=== PATIENT | male | born 1980 | race Caucasian/White ===

== ENCOUNTER 2019-03-10 04:21 | Inpatient (IN) | payer SELFPAY ==
[~2019-03-10] VITALS: Ht 193 cm; Wt 74.2 kg
--- NOTE | 2019-03-10 04:37 | PHYS DOC ---
Past History Past Medical History: Alcoholism, Seizure Additional Past Medical Histor: TBI (LATONYA HYDE DO) Alcohol Use: Occasionally Drug Use: None (LATONYA HYDE DO) Adult General Chief Complaint Chief Complaint: SEIZURE HPI HPI 38-year-old male presents via EMS for seizure. The patient was reported to woke up his significant other around 3:30 AM with tonic-clonic seizure. It is believed that this lasted in excess of 10 minutes until after EMS arrived and gave Versed. The patient was unable to provide a history to EMS or to myself. This history of present illness is gleaned from EMS reports. When EMS arrived the patient was having rhythmic jerking of his upper and lower extremities as well as twitching his head. He had no loss of bowel or bladder. After he was given Versed, the activity appeared to stop. The patient is now very sleepy and is not answering questions. His significant other stated that he is short episodes, but nothing as long as this. Patient may or may not be on any seizure medication. Possible history of traumatic brain injury in the past. (NEAL RODRIGUEZ DO) Review of Systems Review of Systems Unable to assess due to the patient not answering questions. (NEAL RODRIGUEZ DO) Current Medications Current Medications Current Medications Medications (Trade) Dose Ordered Sig/Andrea Start Time Stop Time Status Last Admin Dose Admin Sodium Chloride 1,000 ml @ 1,000 mls/hr 1X ONCE 03/10/19 04:30 03/10/19 05:29 UNV (NEAL RODRIGUEZ DO) Physical Exam Physical Exam Constitutional: Well developed, well nourished, non-toxic appearance. [] HENT: Normocephalic, atraumatic, bilateral external ears normal, oropharynx moist, no oral exudates, nose normal. [] Eyes: PERRLA, EOMI, conjunctiva normal, no discharge. [] Neck: Normal range of motion, no tenderness, supple, no stridor. [] Cardiovascular:Heart rate regular rhythm, no murmur [] Lungs & Thorax: Bilateral breath sounds clear to auscultation [] Abdomen: Bowel sounds normal, soft, no masses, no pulsatile masses. [] Skin: Warm, dry, no erythema, no rash. [] Back: No tenderness, no CVA tenderness. [] Extremities: No tenderness, no cyanosis, no clubbing, ROM intact, no edema. [] Neurologic: Making humming sound, moving all extremities spontaneously, no focal deficits noted. [] Psychologic: Unable to assess. [] (NEAL RODRIGUEZ DO) Physical Exam Constitutional: Well developed, well nourished, no acute distress, non-toxic appearance HENT: Normocephalic, atraumatic, oropharynx moist Eyes: PERRL, EOMI, conjunctiva normal, no discharge, no nystagmus Neck: Normal range of motion, no tenderness, supple Cardiovascular: Heart rate normal, regular rhythm Lungs & Thorax: Bilateral breath sounds clear to auscultation, no wheezing Skin: Warm, dry, no erythema, no rash Extremities: No tenderness, ROM intact, no edema Neurologic: Alert and oriented X 3, expressive aphasia noted with some dysarthria, shakiness noted to BUE and BLE, moves all extremities, sensation intact Psychologic: Affect normal, judgement normal (LATONYA HYDE DO) EKG EKG Sinus tachycardia, rate 117, normal axis, no ST elevations or depressions.[] (NEAL RODRIGUEZ DO) Radiology/Procedures Radiology/Procedures [] (NEAL RODRIGUEZ DO) Radiology/Procedures PROCEDURE: CT HEAD WO CONTRAST & CXR AP Chest AP portable at 0521: Reason for examination: Altered mental status. Seizure. History of traumatic brain injury. The heart size is normal. Mediastinum is unremarkable. Lung severino are clear. No acute bony abnormalities are seen. Impression: No acute cardiopulmonary disease. CT head without contrast: Axial images were obtained through the brain. No contrast was administered. Exposure: One or more of the following individualized dose reduction techniques were utilized for this examination: 1. Automated exposure control 2. Adjustment of the mA and/or kV according to patient size 3. Use of iterative reconstruction technique. Ventricular systems are symmetric and not abnormally dilated. No midline shift is seen. There is no evidence of intracranial hemorrhage. There is encephalomalacia in the left posterior temporal region and left anterior lateral parietal region. No acute infarct, mass or edema seen. No abnormalities of seen at the orbits. The paranasal sinuses and mastoid air cells are clear. There is evidence of previous left craniotomy. No acute skull abnormality is seen. IMPRESSION: Encephalomalacia in the left temporal parietal lobes. No acute intracranial abnormality evident. Electronically signed by: Marina Diego MD (03/10/2019 6:15 AM) [facility] (LATONYA HYDE DO) Course & Med Decision Making Course & Med Decision Making Pertinent Labs and Imaging studies reviewed. (See chart for details) The patient's has arrived and provides further history. She was awoken at 3:30 AM with the patient having full body jerking movements. He was unable to communicate with her. This lasted 10 minutes or more. The has never seen the patient have a seizure like this. She believes the last one he had was 5 years ago. 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 He is on Keppra and has been taking his medications. His physicians have been adjusting his sleep aid, anxiety medicine, and antidepressants lately. No changes in the last 1 week. The patient was of congestion and body aches the last couple of days. Patient has a history of alcohol abuse. He was in inpatient rehabilitation recently. His last drink was about 4 days ago. Patient has no history of alcohol withdrawal difficulty. The patient's labs are unremarkable. His lactic acid is 2.5. We have given the patient 1 L normal saline. Urinalysis is pending. The patient has a bit more awake and able to follow directions. His chest x-ray is unremarkable. His head CT is negative for acute findings. There are significant chronic findings. See official report for more details. I am signing the patient out to Dr. Hyed at 0600. He will determine the patient's final disposition. [] (NEAL RODRIGUEZ DO) Course & Med Decision Making 0600- Sign out received from Dr. Rodriguez for patient with history of breakthrough seizure. IVF x 2L. CT head and CXR reviewed without acute process. Labs reviewed. Lactic acid elevated likely secondary to tonic-clonic seizure. UDS positive for benzodiazepines. Hx that patient was given versed by EMS. Patient seen and evaluated by myself. Patient continues with dysarthria and expressive aphasia. Patient likely post-ictal. Would benefit from continued monitoring and observation. Patient requiring admission for further evaluation and treatment. Discussed with Dr. Pro (hospitalist) who is in agreement with admission. Discussed findings and plan with patient, who acknowledges understanding and agreement. (LATONYA HYDE DO) Dragon Disclaimer Dragon Disclaimer This electronic medical record was generated, in whole or in part, using a voice recognition dictation system. (NEAL RODRIGUEZ DO) Departure Departure: Impression: Primary Impression: Breakthrough seizure Additional Impressions: Lactic acidosis Post-ictal state Disposition: ADMITTED INPATIENT Admitting Physician: Kevan Pro (LATONYA HYDE DO) Condition: STABLE Problem Qualifiers NEAL RODRIGUEZ DO Mar 10, 2019 04:37 LATONYA HYDE DO Mar 10, 2019 06:36
[2019-03-10] MEDS ORDERED: IV NORMAL SALINE 1,000ML 1,000 ML IV ONE ×2 (04:45→06:00)
[2019-03-10] MEDS ORDERED: IV NORMAL SALINE 100ML 100 ML ONE (04:50)
[2019-03-10] MEDS ORDERED: levETIRAcetam 500 MG/5 ML VIAL IV ONE (04:51)
[2019-03-10 05:02] LABS: BASO % 1 % (0-3); EOS # 0.2 x10^3/uL (0.0-0.7); EOS % 5 % (0-3); HEMATOCRIT 44.5 % (39.0-53.0); HEMOGLOBIN 15.2 g/dL (13.0-17.5); LYMPH # 1.1 x10^3/uL (1.0-4.8); LYMPH % 29 % (24-48); MEAN CORPUSCULAR HEMOGLOBIN 31 pg (25-35); MEAN CORPUSCULAR HGB CONC 34 g/dL (31-37); MEAN CORPUSCULAR VOLUME 92 fL (79-100); MONO # 0.3 x10^3/uL (0.0-1.1); MONO % 9 % (0-9); NEUT # 2.2 x10^3uL (1.8-7.7); NEUT % 56 % (31-73); PLATELET COUNT 133 x10^3/uL (140-400); RED BLOOD COUNT 4.87 x10^6/uL (4.30-5.70); RED CELL DISTRIBUTION WIDTH 12.1 % (11.5-14.5); WHITE BLOOD COUNT 3.9 x10^3/uL (4.0-11.0)
[2019-03-10 05:23] LABS: ALBUMIN 3.7 g/dL (3.4-5.0); ALBUMIN/GLOBULIN RATIO 1.3 (1.0-1.7); CALCIUM 8.6 mg/dL (8.5-10.1); CREATININE 1.1 mg/dL (0.7-1.3); GFR 75.3; POTASSIUM 3.6 mmol/L (3.5-5.1); TOTAL BILIRUBIN 0.5 mg/dL (0.2-1.0); TOTAL PROTEIN 6.5 g/dL (6.4-8.2)
--- NOTE | 2019-03-10 06:18 | RAD ---
Chest AP portable at 0521: Reason for examination: Altered mental status. Seizure. History of traumatic brain injury. The heart size is normal. Mediastinum is unremarkable. Lung severino are clear. No acute bony abnormalities are seen. Impression: No acute cardiopulmonary disease. CT head without contrast: Axial images were obtained through the brain. No contrast was administered. Exposure: One or more of the following individualized dose reduction techniques were utilized for this examination: 1. Automated exposure control 2. Adjustment of the mA and/or kV according to patient size 3. Use of iterative reconstruction technique. Ventricular systems are symmetric and not abnormally dilated. No midline shift is seen. There is no evidence of intracranial hemorrhage. There is encephalomalacia in the left posterior temporal region and left anterior lateral parietal region. No acute infarct, mass or edema seen. No abnormalities of seen at the orbits. The paranasal sinuses and mastoid air cells are clear. There is evidence of previous left craniotomy. No acute skull abnormality is seen. IMPRESSION: Encephalomalacia in the left temporal parietal lobes. No acute intracranial abnormality evident. Electronically signed by: Marina Diego MD (03/10/2019 6:15 AM) [facility]
[2019-03-10 07:42] LABS: BARBITURATES NEG (NEG); BENZODIAZEPINES POS (NEG); CANNABINOIDS NEG (NEG); COCAINE NEG (NEG); METHADONE NEG (NEG); OPIATES NEG (NEG); PHENCYCLIDINE NEG (NEG)
[2019-03-10 07:43] LABS: AMPHETAMINE/METHAMPHETAMINE NEG (NEG)
[2019-03-10 07:48] LABS: BACTERIA,URINE 0 /HPF (0-FEW); BILIRUBIN,URINE NEG (NEG); CLARITY,URINE CLEAR; COLOR,URINE YELLOW; GLUCOSE,URINE NEG (NEG); HYALINE CASTS, URINE FEW /HPF; NITRITE,URINE NEG (NEG); RBC,URINE RARE /HPF (0-2); SQUAMOUS EPITHELIAL CELL,UR OCC /LPF; UROBILINOGEN,URINE 0.2 mg/dL (0.2 mg/dL); WBC,URINE OCC /HPF (0-4)
[2019-03-10] MEDS ORDERED: ONDANSETRON PF 4 MG/2 ML VIAL. IV PRN (08:30)
[2019-03-10] MEDS ORDERED: KETOROLAC 15 MG/ML VIAL. IVP ONE (08:50)
[2019-03-10] MEDS: IV NORMAL SALINE 1,000ML 1,000 ML IV SCH ×3 (08:58→20:52)
[2019-03-10] MEDS: ACETAMINOPHEN 325 MG TABLET PO PRN ×3 (09:08→20:51)
[2019-03-10 11:41] VITALS: BP 105/61
[2019-03-10] MEDS ORDERED: HALOPERIDOL LACT 5 MG/ML VIAL. IM PRN (12:00)
[2019-03-10] MEDS ORDERED: diphenhydrAMINE 50 MG/ML VIAL IVP PRN (12:00)
[2019-03-10] MEDS ORDERED: chlordiazePOXIDE HCL 25 MG CAPSULE PO PRN ×2 (12:00)
[2019-03-10] MEDS ORDERED: Influenza vaccine per PROTOCOL. MC ONE (12:00)
[2019-03-10] MEDS ORDERED: cloNIDine HCL 0.1 MG TABLET PO PRN (12:00)
[2019-03-10 12:14] LABS: ALBUMIN 3.6 g/dL (3.4-5.0); DIRECT BILIRUBIN 0.2 mg/dL (0.0-0.2); TOTAL BILIRUBIN 0.9 mg/dL (0.2-1.0); TOTAL PROTEIN 6.3 g/dL (6.4-8.2)
[2019-03-10 15:02] VITALS: BP 109/68
[2019-03-10 17:15] VITALS: BP 115/70
[2019-03-10 17:16] VITALS: BP_SYST 108; BP_SYST 119; BP_DIAS 68; BP_DIAS 69
--- NOTE | 2019-03-10 17:28 | HP ---
ADMIT DATE: 03/10/2019 HISTORY OF PRESENT ILLNESS: The patient is a 38-year-old male patient who was brought to the Emergency Room by EMS for seizure. The patient reported to woke up his significant other around 3:30 p.m. with tonic-clonic seizure. It is believed that this lasted in excess of 10 minutes until after EMS arrived and gave Versed. The patient was unable to provide any history to EMS or to the ER physician. This history of present illness was gleaned from EMS report. When EMS arrived, the patient was having rhythmic jerking of his upper and lower extremities as well as twitching. There was no reported tongue biting or loss of bowel or bladder. He was given Versed and activity appeared to stopped. The patient is very sleepy. By the time he arrived, he was in postictal state. His significant other stated that most of the other episode are short but nothing as long as this. It transpired that the patient is on actually Keppra 1500 mg twice a day and he has been according to him taking his medication regularly. However, his Xanax was stopped by his psychiatrist at [facility] and substituted with trazodone and the patient took Seroquel that was given to him a long time ago by another doctor. In any case, he was extensively investigated in the Emergency Room. His white cell count was low. If anything, he has mild thrombocytopenia. His lactic acid was slightly high at 2.5. Initially, it came down to 0.7 and other than that most other lab works are unremarkable. His urinalysis was essentially unremarkable and toxic screen was positive for any benzodiazepine. PAST MEDICAL HISTORY: Significant for traumatic brain injury about 10 years ago. He apparently developed posttraumatic seizure disorder and alcoholism for which he was admitted for detoxification to [facility]. PAST SURGICAL HISTORY: Significant for traumatic brain injury for which he underwent craniotomy and skull flap placement, although I do not have any specific details. Apparently, this happened 10 years ago while he was at [facility]. PAST PSYCHIATRIC HISTORY: The patient reported 1 passed detoxification in 2013. It was primarily for opiates. He denied advanced rehabilitation. He denied any suicidal attempts before. He denied any past psychiatric hospitalization not related to drug use and he reported that he is only prescribed Xanax and Suboxone as psychiatric medication. FAMILY HISTORY: Unremarkable. SOCIAL HISTORY: He lives with his significant other and 2-year son. 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 He smokes 5-10 cigarettes a day. He drinks vodka on a daily basis, last drink according to him was 3 weeks ago. ALLERGIES: He has no known drug allergies. MEDICATIONS: He is currently on following medications: He is on diphenhydramine (Benadryl) 25 mg. He is on Keppra 1500 mg p.o. b.i.d., Tylenol 650 mg every 4 hours. His other medications: He is on hydroxyzine up to 50 mg every 6 hours, trazodone 200 mg at bedtime. He is on Prozac 20 mg once a day for anxiety. He is on gabapentin 600 mg 3 times a day. He is also on Suboxone 8 mg/2 mg daily during hospital stay. REVIEW OF SYSTEMS: As per history of present illness. PHYSICAL EXAMINATION: GENERAL: On arrival to the Emergency Room, he was very lethargic. He apparently was able to move all extremities spontaneously. VITAL SIGNS: Heart rate was 110, blood pressure was 122/69, temperature was 97.2, respiratory rate was 18 and oxygen saturation was 97% on room air. HEAD, EYES, EARS, NOSE AND THROAT: Showed normocephalic, atraumatic. NECK: Supple. HEART: Showed normal first and second heart sounds. No gallop, rub or murmur. CHEST: Clear to auscultation. No crepitation or rhonchi. ABDOMEN: Distended, soft, nontender. NEUROLOGIC: He was in a postictal state; however, he was able to move all extremities spontaneously. LABORATORY DATA: While in the Emergency Room, he has had a CT scan of the head, which showed that the patient's ventricular systems are symmetric and not abnormally dilated. No midline shift is seen. There is no evidence of intracranial hemorrhage. There is encephalomalacia in the left posterior temporal region and left anterolateral parietal region. No acute infarct, mass or edema seen. No abnormalities seen at the orbits. His paranasal sinuses and mastoid air cells are clear. There is evidence of previous left craniotomy. No acute skull abnormality seen. His chest x-ray showed that the patient's heart size is normal, mediastinum is unremarkable. Lung severino are clear. No acute bony abnormalities are seen. His lab work showed that his white cell count was 3900, hemoglobin 15, hematocrit 44, MCV 92, and platelet count of 133,000 with normal manual differential. His chemistry showed a serum sodium 143, potassium 3.6, chloride 103, bicarbonate 30, anion gap of 10, BUN 16, creatinine 1.1, estimated GFR was 75 mL per minute. His glucose was 98, lactic acid was 2.5, calcium was 8.9. Total bilirubin, AST, ALT, alkaline phosphatase were normal. Total protein was 6.5, albumin was 3.7. Urinalysis showed the urine was yellow, clear with a pH of 6, specific gravity of 1.020. The urine was negative for protein, glucose, trace amount of ketones. The urine was negative for blood, nitrite, leukocyte esterase. There are no rbc's, no wbc's, and no bacteria. His toxic screen was negative for opiates, methadone, barbiturate, phencyclidine, amphetamine, methamphetamine, cocaine, cannabinoids and alcohol. It was positive for benzodiazepine. ASSESSMENT AND PLAN: In summary, this is a 38-year-old male patient that came with what seemed to be breakthrough seizures. He also was in postictal state and had lactic acidosis that has resolved. He has received about 3 liters of fluid in the Emergency Room, was given a loading dose of Keppra and 2 mg of Ativan and was admitted to continue with alcohol withdrawal protocol and also Keppra 1500 mg twice a day. I will consult Dr. Brooks to see him. We will check his creatine kinase and by the time I saw him, he has not had any urine for almost 5 hours. We will scan his bladder and also check his orthostatics as he continues to feel dizzy. ESTELA ACEVES MD DR: SAL/roberta JOB#: [id number] / [id number]
[2019-03-10 19:55] VITALS: BP 109/73
[2019-03-10 20:07] LABS: HEMOGLOBIN 14.3 g/dL (13.0-17.5); RED BLOOD COUNT 4.55 x10^6/uL (4.30-5.70); WHITE BLOOD COUNT 10.6 x10^3/uL (4.0-11.0)
[2019-03-10 20:15] LABS: ALBUMIN 3.2 g/dL (3.4-5.0); ALBUMIN/GLOBULIN RATIO 1.1 (1.0-1.7); CREATININE 0.9 mg/dL (0.7-1.3); POTASSIUM 3.8 mmol/L (3.5-5.1); TOTAL BILIRUBIN 0.7 mg/dL (0.2-1.0)
[2019-03-10] MEDS: levETIRAcetam 500 MG TABLET PO SCH (20:51)
[2019-03-10 23:22] VITALS: BP 115/61
[2019-03-11] MEDS: IV NORMAL SALINE 1,000ML 1,000 ML IV SCH ×4 (03:13→19:44)
[2019-03-11 05:14] VITALS: BP 126/74
[2019-03-11] MEDS: levETIRAcetam 500 MG TABLET PO SCH ×2 (09:12→19:44)
[2019-03-11 09:48] LABS: CALCIUM 8.5 mg/dL (8.5-10.1); CREATININE 0.8 mg/dL (0.7-1.3); GFR 108.8; POTASSIUM 3.5 mmol/L (3.5-5.1)
[2019-03-11 10:31] VITALS: BP 120/69
[2019-03-11] MEDS ORDERED: LORazepam 1 MG TABLET PO ONE ×2 (13:30→21:00)
[2019-03-11] MEDS ORDERED: MAGNESIUM SULFATE 2GM 50 ML IV ONE (14:00)
[2019-03-11] MEDS: MAGNESIUM OXIDE 400 MG TABLET PO SCH ×2 (14:11→19:43)
[2019-03-11 14:33] VITALS: BP 122/71
[2019-03-11] MEDS: SUBOXONE PO SCH (18:07)
--- NOTE | 2019-03-11 18:13 | CONS ---
DATE OF CONSULTATION: 03/10/2019 REFERRING PHYSICIAN: Dr. Pro. REASON FOR CONSULTATION: Possible breakthrough seizure. HISTORY OF PRESENT ILLNESS: This is a 38-year-old right-handed male who was admitted to Emergency Room after he presented with acute onset of generalized tonic-clonic seizure began at 3:30 this morning. The patient did not recall the event. He did not have any tongue biting, bowel or bladder incontinence. The seizure lasted approximately 10 minutes followed by postictal confusion and disorientation. EMS was activated and witnessed generalized tonic-clonic seizure activities. He was given Versed and transferred to Emergency Room and in Emergency Room, he was found to be in postictal state. According to the ER note, the patient has been on Xanax, which was stopped by his psychiatrist and substituted with trazodone. Lactic acid was elevated at 2.[address] scan revealed no evidence of acute intracranial process. Urine drug screen was unremarkable. PAST MEDICAL HISTORY: Significant for frequent traumatic brain injuries probably as the etiology of his seizure; however, he was alcoholic. History of depression. PAST SURGICAL HISTORY: Significant for severe traumatic brain injury requiring craniotomy approximately 10 years ago. SOCIAL HISTORY: The patient is single. He has a 2-year-old son. 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 He smokes half pack of cigarettes daily and he drinks alcohol, but the last alcohol drink was 3 weeks ago. FAMILY HISTORY: Noncontributory. CURRENT MEDICATIONS: Keppra 1500 mg b.i.d., hydroxyzine 50 mg q. 6 hours p.r.n., trazodone 200 mg at bedtime, Prozac 20 mg daily, gabapentin 600 mg 3 times daily, Suboxone 8 mg/2 mg daily. REVIEW OF SYSTEMS: A 10-point review of system was performed as mentioned in the history of present illness, otherwise, unremarkable. PHYSICAL EXAMINATION: GENERAL: Well-developed, well-nourished male, not in acute distress. He weighs 74.1 kilos. VITAL SIGNS: Blood pressure 119/68, respiratory rate 18, pulse is 89 and regular, oxygen saturation is 100% on room air. HEENT: Normocephalic, atraumatic, otherwise, unremarkable. NECK: Supple. Negative for carotid bruit, lymphadenopathy, JVD or thyromegaly. LUNGS: Clear to A and P. CARDIOVASCULAR: Regular rate and rhythm, normal S1, S2. ABDOMEN: Soft. Bowel sounds positive. EXTREMITIES: Negative for cyanosis, clubbing or pitting edema. NEUROLOGICAL EXAM: Mental Status: The patient is alert and oriented x 2. The speech is slow. The patient has difficulty to complete sentences and provide more information about his seizure. Memory, judgment, and abstract thinking are fair. The patient denies hallucination or delusion. CRANIAL NERVES: Visual severino are full. The pupils are reactive to light and accommodation. The extraocular movements are intact. There is no nystagmus. There is no facial motor or sensory deficit. Hearing is intact bilaterally. The palate is elevated symmetrically. Sternocleidomastoid muscles are powerful bilaterally. The patient shrugs his shoulders symmetrically, protrudes his tongue in the midline without fasciculation or atrophy. MOTOR: No focal muscle bulk was seen. The tone is normal. The strength is 4/5 throughout. Sensory examination revealed normal pinprick, light touch, vibratory and position senses. Deep tendon reflexes were hypoactive with absent Achilles responses. Gait not tested at this time. LABORATORY DATA: CBC revealed white blood cells of 10.6, hemoglobin 14.3, hematocrit 42, platelet count 124,000. Chemistry revealed sodium of 141, potassium 3.8, chloride 107, CO2 of 26, BUN 16, creatinine 0.9, glucose 115, calcium is 8. Liver enzymes are normal. Urinalysis is negative for urinary tract infections and urine drug screen is negative as well. DIAGNOSTIC DATA: Initial nonenhanced head CT scan revealed encephalomalacia to the left temporoparietal lobe, otherwise, no acute intracranial process. Chest x-ray revealed no acute cardiopulmonary process. IMPRESSION: 1. Probably breakthrough seizure. The patient has been on Keppra 1500 mg twice daily for his seizure, which is probably due to traumatic brain injury which required craniotomy. 2. Multiple psychiatric problems as described above. RECOMMENDATION: Continue with current management and check Keppra level. M Chemo BEAR MD DR: BIMAL/roberta JOB#: [id number] / [id number]
[2019-03-11] MEDS ORDERED: ONDANSETRON ODT 4 MG TAB.RAPDIS PO ONE (18:15)
[2019-03-11 19:35] VITALS: BP 104/65
[2019-03-11 22:20] VITALS: BP 116/67
--- NOTE | 2019-03-12 02:00 | PN ---
DATE: 03/11/2019 SUBJECTIVE: The patient is resting, slightly propped up in bed, in no apparent respiratory distress. He is awake, alert. Continues somewhat forgetful, but has been up and about, has had no further episodes of seizures. PHYSICAL EXAMINATION: GENERAL: When I examined him, he looked well and was clearly in no apparent respiratory distress. There is no pallor, jaundice, cyanosis, or thyromegaly. No jugular venous distension. No lower limb edema. VITAL SIGNS: Her heart rate was 71, blood pressure was 120/69, temperature was 98.6, respiratory rate 20, and oxygen saturation was 98%. HEAD, EYES, EARS, NOSE AND THROAT: Showed normocephalic, atraumatic. NECK: Supple. HEART: Showed normal first and second heart sounds. No gallop or murmur. CHEST: Clear to auscultation. No crepitation or rhonchi. ABDOMEN: Scaphoid, soft, nontender. NEUROLOGIC: He is definitely more awake, alert, responding appropriately. All cranial nerves are intact. He moves extremities without difficulty. His intake was 3146, output was 390. LABORATORY DATA: His lab work this morning showed a white cell count of 10,600, hemoglobin 14, hematocrit 42, MCV 92, and platelet count 124,000. Serum sodium 142, potassium 3.5, chloride 107, bicarbonate 23, anion gap of 23, BUN 12, creatinine 0.8, estimated GFR was 180 mL per minute. His glucose was 98, calcium was 8.5. CK was 577. ASSESSMENT: 1. Breakthrough seizures. 2. Traumatic brain injury. 3. Posttraumatic seizure disorder. 4. Alcoholism. 5. Opiates addiction. PLAN: Plan is to continue with IV fluid. He has multiple ectopic beats. We will arrange for him to have a 12-lead EKG. Await the Keppra level and if it is well within therapeutic range, we will discharge him home to continue on his 1500 mg of Keppra twice a day. ESTELA ACEVES MD DR: SAL/roberta JOB#: [id number] / [id number]
[2019-03-12 02:29] LABS: CALCIUM 8.3 mg/dL (8.5-10.1); CREATININE 0.8 mg/dL (0.7-1.3); GFR 108.8; POTASSIUM 3.3 mmol/L (3.5-5.1)
[2019-03-12] MEDS ORDERED: POTASSIUM CHLORIDE 20 MEQ TABLET.ER. PO ONE ×3 (02:45→08:00)
[2019-03-12] MEDS: IV NORMAL SALINE 1,000ML 1,000 ML IV SCH (04:15)
[2019-03-12 05:07] VITALS: BP 123/72
[2019-03-12] MEDS: levETIRAcetam 500 MG TABLET PO SCH (08:45)
[2019-03-12] MEDS: SUBOXONE PO SCH (08:45)
[2019-03-12] MEDS: MAGNESIUM OXIDE 400 MG TABLET PO SCH (08:45)
[2019-03-12] MEDS ORDERED: LEVE100020 PO (10:36)
[2019-03-12 10:44] VITALS: BP 140/61
--- NOTE | 2019-03-12 20:44 | DS ---
DATE OF DISCHARGE: 03/12/2019 HOSPITAL COURSE: The patient is a 38-year-old male patient who was admitted with a breakthrough seizure that apparently lasted about 10 minutes followed by postictal confusion, disorientation. By the time the emergency medical service personnel arrived there, he continued to have generalized tonic-clonic seizure activity. He was given Versed and transferred to Emergency Room where he was found to be in postictal state. According to ER note, the patient has been on Xanax, which was stopped by his psychiatrist and substitute with trazodone. His lactic acid was elevated at 2.5. CT scan revealed no evidence of acute intracranial process. Urine drug screen was remarkable. The patient was admitted and was given loading dose of Keppra, put back on his usual dose, continued on his other medication that included Suboxone. His magnesium was low, so that was replenished and he did have mild rhabdomyolysis that has resolved and the patient has been up and about, awake, alert, oriented to time, place and person. He has been moving all the extremities and ambulating without the assistance of assistive devices. Therefore, decision was made to discharge him home to follow with his primary care physician. PHYSICAL EXAMINATION: GENERAL: When I saw him this morning, he was sitting on the edge of the bed comfortably, in no apparent distress. He was pale. No jaundice, cyanosis or thyromegaly. No jugular venous distension. No limb edema. VITAL SIGNS: Her heart rate was 70, blood pressure was 123/72, temperature was 97.6, respiratory rate was 16, and oxygen saturation was 98%. HEAD, EYES, EARS, NOSE AND THROAT: Showed normocephalic, atraumatic. NECK: Supple. HEART: Showed normal first and second heart sounds. No gallop, rub or murmur. CHEST: Clear to auscultation. No crepitation or rhonchi. ABDOMEN: Distended, soft, nontender. No guarding or rigidity. No organomegaly. All hernial orifice intact. Bowel sounds normal. NEUROLOGIC: He was grossly intact. LABORATORY DATA: This morning showed a serum sodium 139, potassium 3.3, chloride 104, bicarbonate 29, anion gap of 6, BUN 9, creatinine 0.8, estimated GFR was 180 mL per minute, his glucose 103, calcium was 8.3, magnesium was 1.9. His CK came down from 620 down to 430. White cell count was 10,600, hemoglobin 14, hematocrit 42, MCV 92 and platelet count 124,000. DISCHARGE MEDICATIONS: He was discharged home to continue on Keppra 1500 mg twice a day, hydroxyzine 50 mg every 6 hours, trazodone 200 mg at bedtime, Prozac 20 mg daily, gabapentin 600 mg 3 times a day and Suboxone 8 mg/2 mg daily. FINAL DISCHARGE DIAGNOSES: 1. Breakthrough seizures. 2. Posttraumatic seizures. 3. Traumatic brain injury. 4. Alcoholism. 5. History of depression. ESTELA AECVES MD DR: SAL/roberta JOB#: [id number] / [id number]
--- NOTE | 2019-03-12 22:30 | EKG ---
[address] [address] Test Date: 2019-03-10 Test Time: 04:29:16 Pat Name: MICHELLE HAQ Department: Room: 115 A Gender: M Senior Planning Manager: : 1980 Requested By: NEAL RODRIGUEZ Order Number: [id number] Reading MD: Haja Bah MD Measurements Intervals [place] Rate: 117 P: 75 NE: 116 QRS: 90 QRSD: 76 T: 51 QT: 318 QTc: 448 Interpretive Statements SINUS TACHYCARDIA Electronically Signed On 03-15-2019 15:41:20 CDT by Haja Bah MD
--- NOTE | 2019-03-12 22:32 | EKG ---
[address] [address] Test Date: 2019-03-11 Test Time: 13:30:12 Pat Name: MICHELLE HAQ Department: Room: 115 A Gender: M [employer] Coating Machine Setter: : 1980 Requested By: ESTELA ACEVES Order Number: [id number] Reading MD: Measurements Intervals [place] Rate: 76 P: 67 CT: 122 QRS: 83 QRSD: 76 T: 78 QT: 352 QTc: 400 Interpretive Statements SINUS RHYTHM COMPLEX(ES) WITH ABERRANT INTRAVENTRICULAR CONDUCTION VENTRICULAR PREMATURE COMPLEX(ES) ABNORMAL ECG RI6.02 No previous ECG available for comparison
== END 2019-03-12 11:15 | disposition home or self-care (01) | DRG 101 ==
LOC: ER 04:21 → 1 SOUTH 09:12
PROVIDERS: ADMIT Internal Medicine; ATTEND Internal Medicine
DX: G40.409 Other generalized epilepsy and epileptic syndromes, not intractable, without status epilepticus (principal); E87.2 Acidosis; G40.509 Epileptic seizures related to external causes, not intractable, without status epilepticus; F05 Delirium due to known physiological condition; F11.20 Opioid dependence, uncomplicated; M62.82 Rhabdomyolysis; D69.6 Thrombocytopenia, unspecified; F32.9 Major depressive disorder, single episode, unspecified; F10.20 Alcohol dependence, uncomplicated; F17.210 Nicotine dependence, cigarettes, uncomplicated; G93.89 Other specified disorders of brain; Z56.0 Unemployment, unspecified
CPT/HCPCS: 36415; 70450; 71045; 80048; 80053; 80076; 80177; 80307; 81001; 82550; 83605; 83735; 84132; 84484; 85025; 85027; 93005; 96361; 96374; 96375; G0480; J1885; J1953; J2060; J2405; J3475; Q0162; 99285-25; J7030

== ENCOUNTER 2021-04-23 23:57 | Emergency (ER) | payer SELFPAY ==
[~2021-04-23] VITALS: Ht 193 cm; Wt 77.1 kg
[~2021-04-23 23:57] MED LIST: LEVE100020 PO
--- NOTE | 2021-04-24 00:21 | PHYS DOC ---
Past History Past Medical History: Alcoholism, Seizure Additional Past Medical Histor: TBI (CHANDLER DELCID APRN) Past Surgical History: Other Additional Past Surgical Histo: unk (CHANDLER DELCID APRN) Alcohol Use: Occasionally Drug Use: None (CHANDLER DELCID APRN) General Adult EDM: Chief Complaint: SUICIDAL IDEATION HPI: HPI: Patient is a 40-year-old male who presents to the emergency department for suicidal ideation. Patient reports that he drink a quarter of a liter of vodka today. He has a history of alcoholism. He reports suicidal ideation and is planning to kill himself with a gun. Patient states that he does not have access to any weapons at home. When the nurse asked patient's family members, they state that he did have a shotgun and a handgun but those were taken away from him. Patient is reporting frequent falls. He fell yesterday and today. Patient denies any loss of consciousness but family states that after his fall this afternoon he did have a loss of consciousness. Patient does have abrasions to his left knee and to the right side of his head. Patient states that he has a history of anxiety, depression and seizures. He takes alprazolam, Keppra and Lexapro. Patient states that he has been taking his medications as prescribed. 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 Patient denies any complaints at this time. He is alert and oriented. He states that he does not want to be seen in the emergency department. (CHANDLER DELCID APRN) Review of Systems: Review of Systems: 14 body systems of the review of systems have been reviewed. See HPI for pertinent positive and negative responses, otherwise all other systems are negative, nonpertinent or noncontributory (CHANDLER DELCID APRN) Allergies: Allergies: Allergies Coded Allergies Type Severity Reaction Last Updated Verified No Known Drug Allergies 03/10/19 No (CHANDLER DELCID APRN) Physical Exam: PE: Constitutional: Well developed, well nourished, no acute distress, non-toxic appearance. [] HENT: Normocephalic, abrasion noted to right side of scalp, bilateral external ears normal, oropharynx moist, no oral exudates, nose normal. [] Eyes: PERRL, EOMI, conjunctiva normal, no discharge. [] Neck: Normal range of motion, no bony spinal tenderness, no stepoffs or deformitiessupple, no stridor. [] Cardiovascular:Heart rate regular rhythm, no murmur [] Lungs & Thorax: Bilateral breath sounds clear to auscultation [] Abdomen: Bowel sounds normal, soft, no tenderness, no masses, no pulsatile masses. [] Skin: Warm, dry, no erythema, no rash. [] Back: No tenderness, normal ROM Extremities: No tenderness, no cyanosis, no clubbing, ROM intact, no edema. [] Neurologic: Alert and oriented X 3, normal motor function, normal sensory function, no focal deficits noted. [] Psychologic: Affect normal, judgement normal, mood normal. [] (CHANDLER DELCID APRN) EKG: EKG: [] (CHANDLER DELCID APRN) Radiology/Procedures: Radiology/Procedures: []PROCEDURE: CT HEAD AND CERVICAL SPINE WO EXAM: CT head and cervical spine without contrast INDICATION: Fall, loss of consciousness, suicidal ideation COMPARISON: CT head 03/10/2019 TECHNIQUE: Axial CT imaging through the head and cervical spine without intravenous contrast. Sagittal and coronal reformats were obtained. One or more of the following individualized dose reduction techniques were utilized for this examination: 1. Automated exposure control 2. Adjustment of the mA and/or kV according to patient size 3. Use of iterative reconstruction technique. FINDINGS: CT head: Ventricles and sulci are prominent. There is encephalomalacia in the left temporal and parietal region. No intracranial hemorrhage, acute infarct, or mass lesion. There are are surgical changes of left pterion craniotomy. Paranasal sinuses and mastoid air cells are clear. Globes and orbits are intact.. CT cervical spine: No acute fracture. There is minimal anterolisthesis of C3 on C4. Small disc osteophyte complexes at C4-C5 and C5-C6. No canal or foraminal narrowing. Facet joints are normal. Prevertebral soft tissues normal. Mild paraseptal emphysema in the lung apices. IMPRESSION: 1. No acute intracranial abnormality. 2. Unchanged left temporoparietal encephalomalacia. 3. No acute osseous abnormality of the cervical spine. Electronically signed by: Pam Easton MD (04/24/2021 12:56 AM) [facility] DICTATED AND SIGNED BY: PAM EASTON MD DATE: 04/24/21 0050 CC: NEAL RODRIGUEZ DO; DAVIN MURILLO MD; CHANDLER DELCID APRN ~MTH0 0 (CHANDLER DELCID APRN) Heart Score: C/O Chest Pain: N/A Risk Factors: Risk Factors: DM, Current or recent (<one month) smoker, HTN, HLP, family history of CAD, obesity. Risk Scores: Score 0 - 3: 2.5% MACE over next 6 weeks - Discharge Home Score 4 - 6: 20.3% MACE over next 6 weeks - Admit for Clinical Observation Score 7 - 10: 72.7% MACE over next 6 weeks - Early Invasive Strategies (CHANDLER DELCID APRN) Course & Med Decision Making: Course & Med Decision Making Pertinent Labs and Imaging studies reviewed. (See chart for details) [] Patient presents to the emergency department for suicidal ideation. Patient has a history of alcoholism and reports drinking a quarter of a liter of vodka today. Patient is alert and oriented x4. He does have signs of trauma to his scalp therefore a CT scan of his head and neck were performed. Screening lab work for medical clearance for psychiatric evaluation was performed in the emergency department. Patient to be evaluated by member of the psychiatric assessment team. Patient placed on one-to-one observation suicidal precautions initiated. 0056: lab work is pending at this time. Patient treated with banana bag in ER. PAT team at bedside. I discussed patients case with supervising physician and he will assume patient care at this time due to shift change. (CHANDLER DELCID APRN) Course & Med Decision Making I was the Attending physician on the above date of service of this patient. This patient was evaluated, examined, treated, and dispositioned from the emergency department by the mid-level practitioner. Although I was working at the time , no assistance was requested. Electronically signed, Flash Ortiz DO (FLASH ORTIZ DO) Teet[place] Disclaimer: [place]et[place] Disclaimer: This electronic medical record was generated, in whole or in part, using a voice recognition dictation system. (CHANDLER DELCID APRN) Attending Co-Sign The patient was seen and interviewed as well as examined at the bedside. The chart was reviewed. The case was discussed. Agree with the plan of care. (RODRIGUEZ,NEAL DO) Departure Departure: Impression: Primary Impression: Suicidal ideation Additional Impression: Alcohol use Disposition: 01 HOME / SELF CARE / HOMELESS Condition: STABLE Referrals: DAVIN MURILLO MD (PCP) Additional Instructions: As discussed prior to ER departure, you are found to be medically fit based on our diagnostic work-up. You were also evaluated by our behavioral health team that deemed a fit for discharge home assuming you follow prescribed safety plan. Please use and follow the safety plan as written to ensure continued success in outpatient world. Nonetheless, if any concerning signs or symptoms or thoughts of self-harm or harming others arise prior to outpatient follow-up please do not hesitate to come back for repeat evaluation. Is a pleasure to take care of you and I wish you the best going forward CHANDLER DELCID APRN Apr 24, 2021 00:21 FLASH ORTIZ DO Apr 24, 2021 09:42 NEAL RODRIGUEZ DO Apr 24, 2021 19:02
[2021-04-24] MEDS ORDERED: MVI, ADULT NO.4 WITH VIT K 10 ML, THIAMINE INJ 100 MG in IV NORMAL SALINE 1,000ML 1,000... IV ONE (00:45)
[2021-04-24] MEDS ORDERED: FOLIC ACID 1 MG TABLET PO ONE (00:45)
--- NOTE | 2021-04-24 00:58 | RAD ---
EXAM: CT head and cervical spine without contrast INDICATION: Fall, loss of consciousness, suicidal ideation COMPARISON: CT head 03/10/2019 TECHNIQUE: Axial CT imaging through the head and cervical spine without intravenous contrast. Sagitta l and coronal reformats were obtained. One or more of the following individualized dose reduction techniques were utilized for this examinat ion: 1. Automated exposure control 2. Adjustment of the mA and/or kV according to patient size 3. Use of iterative reconstruction technique. FINDINGS: CT head: Ventricles and sulci are prominent. There is encephalomalacia in the left temporal and parietal regio n. No intracranial hemorrhage, acute infarct, or mass lesion. There are are surgical changes of left pterion craniotomy. Paranasal sinuses and mastoid air cells are clear. Globes and orbits are intact.. CT cervical spine: No acute fracture. There is minimal anterolisthesis of C3 on C4. Small disc osteophyte complexes at C 4-C5 and C5-C6. No canal or foraminal narrowing. Facet joints are normal. Prevertebral soft tissues n ormal. Mild paraseptal emphysema in the lung apices. IMPRESSION: 1. No acute intracranial abnormality. 2. Unchanged left temporoparietal encephalomalacia. 3. No acute osseous abnormality of the cervical spine. Electronically signed by: Pam Easton MD (04/24/2021 12:56 AM) [facility]
[2021-04-24 01:02] LABS: BASO % 1 % (0-3); EOS # 0.2 x10^3/uL (0.0-0.7); EOS % 4 % (0-3); HEMATOCRIT 42.5 % (39.0-53.0); HEMOGLOBIN 14.8 g/dL (13.0-17.5); LYMPH # 2.1 x10^3/uL (1.0-4.8); LYMPH % 51 % (24-48); MEAN CORPUSCULAR HEMOGLOBIN 32 pg (25-35); MEAN CORPUSCULAR HGB CONC 35 g/dL (31-37); MEAN CORPUSCULAR VOLUME 93 fL (79-100); MONO # 0.3 x10^3/uL (0.0-1.1); MONO % 8 % (0-9); NEUT # 1.5 x10^3uL (1.8-7.7); NEUT % 37 % (31-73); PLATELET COUNT 192 x10^3/uL (140-400); RED BLOOD COUNT 4.57 x10^6/uL (4.30-5.70); RED CELL DISTRIBUTION WIDTH 12.4 % (11.5-14.5); WHITE BLOOD COUNT 4.2 x10^3/uL (4.0-11.0)
[2021-04-24 01:07] LABS: CLARITY,URINE CLEAR; COLOR,URINE YELLOW
[2021-04-24 01:08] LABS: BACTERIA,URINE 0 /HPF (0-FEW); BILIRUBIN,URINE NEG (NEG); GLUCOSE,URINE NEG (NEG); NITRITE,URINE NEG (NEG); RBC,URINE 0 /HPF (0-2); SQUAMOUS EPITHELIAL CELL,UR OCC /LPF; UROBILINOGEN,URINE 0.2 mg/dL (0.2 mg/dL); WBC,URINE RARE /HPF (0-4)
[2021-04-24 01:09] LABS: CALCIUM 8.2 mg/dL (8.5-10.1); CREATININE 0.7 mg/dL (0.7-1.3); GFR 125.5; POTASSIUM 4.1 mmol/L (3.5-5.1)
[2021-04-24 01:10] LABS: BARBITURATES NEG (NEG); BENZODIAZEPINES POS (NEG); CANNABINOIDS NEG (NEG); COCAINE NEG (NEG); METHADONE NEG (NEG); OPIATES NEG (NEG); PHENCYCLIDINE NEG (NEG)
[2021-04-24 01:15] LABS: AMPHETAMINE/METHAMPHETAMINE NEG (NEG)
[2021-04-24 01:15] LABS: ACETAMIN < 2.0 mcg/mL (10-30); ALBUMIN/GLOBULIN RATIO 1.2 (1.0-1.7); ETHANOL 180 mg/dL (0-10); SALIC < 2.8 mg/dL (2.8-20.0); TOTAL BILIRUBIN 0.2 mg/dL (0.2-1.0); TOTAL PROTEIN 7.3 g/dL (6.4-8.2)
[2021-04-24] MEDS ORDERED: MVI, ADULT NO.4 WITH VIT K 10 ML VIAL IV ONE (01:19)
[2021-04-24 08:15] VITALS: BP 110/67
[2021-04-24] MEDS ORDERED: levETIRAcetam 500 MG TABLET PO SCH (08:30)
--- NOTE | 2021-04-27 09:15 | NUR ---
Patient notified of covid results
== END 2021-04-24 09:49 | disposition home or self-care (01) ==
LOC: ER 23:57
DX: S00.01XA Abrasion of scalp, initial encounter (principal); S80.212A Abrasion, left knee, initial encounter; R45.851 Suicidal ideations; R29.6 Repeated falls; F10.20 Alcohol dependence, uncomplicated; Z20.822 Contact with and (suspected) exposure to COVID-19; Y90.6 Blood alcohol level of 120-199 mg/100 ml; W18.39XA Other fall on same level, initial encounter; Y93.89 Activity, other specified; Y92.89 Other specified places as the place of occurrence of the external cause; Y99.8 Other external cause status
CPT/HCPCS: 36415; 70450; 72125; 80053; 80307; 80329; 81001; 85025; 87426; 96365; 96375; 99285; C9803; G0480; J2060; J7030; U0003